=== PATIENT | male | born 1955 | race Two or more races ===

== ENCOUNTER 2021-12-05 16:45 | Emergency (ER) | payer OTHER ==
[~2021-12-05] VITALS: Ht 180.3 cm; Wt 99.3 kg
[2021-12-05] MEDS ORDERED: GLUMETZA1000 MG PO (16:54)
[2021-12-05] MEDS ORDERED: GABAPENTIN100 M2 (16:55)
[2021-12-05] MEDS ORDERED: ATORVASTATIN CA10 MG PO (16:55)
[2021-12-05] MEDS ORDERED: COZAAR100 MG PO (16:55)
[2021-12-05] MEDS ORDERED: [UNRECOGNIZED DRUG - OTHER] (16:55)
== END 2021-12-05 19:27 | disposition home or self-care (01) ==
LOC: ER 16:45
DX: S92.301A Fracture of unspecified metatarsal bone(s), right foot, initial encounter for closed fracture (principal); W22.8XXA Striking against or struck by other objects, initial encounter; Y92.89 Other specified places as the place of occurrence of the external cause; Y93.89 Activity, other specified

== ENCOUNTER 2022-07-17 03:18 | Emergency (ER) | payer OTHER ==
[~2022-07-17] VITALS: Ht 182.9 cm; Wt 99.3 kg
[~2022-07-17 03:18] MED LIST: ATORVASTATIN CA10 MG PO; COZAAR100 MG PO; GABAPENTIN100 M2; GLUMETZA1000 MG PO; [UNRECOGNIZED DRUG - OTHER]
== END 2022-07-17 04:05 | disposition left against medical advice (07) ==
LOC: ER 03:18
DX: L97.519 Non-pressure chronic ulcer of other part of right foot with unspecified severity (principal); E11.9 Type 2 diabetes mellitus without complications; Z79.84 Long term (current) use of oral hypoglycemic drugs; I10 Essential (primary) hypertension